=== PATIENT | male | born 1990 | race Asian ===

== ENCOUNTER 2022-08-11 19:36 | Emergency (ER) | payer BC ==
[~2022-08-11] VITALS: Ht 172.7 cm; Wt 72.6 kg
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
--- NOTE | 2022-08-11 20:53 | NUR ---
SEEN BY MD AT BEDSIDE.
[2022-08-11] MEDS ORDERED: KETOROLAC TROMETHAMINE INJ 30 MG/ML VIAL ONE (20:59)
[2022-08-11] MEDS ORDERED: KETOROLAC TROMETHAMINE INJ 60 MG/2 ML VIAL IM ONE (21:00)
--- NOTE | 2022-08-11 21:03 | NUR ---
XRAY DONE AT BEDSIDE
[2022-08-11] MEDS ORDERED: LIDOCAINE HCL/PF 2 % 5ML SDV 5 ML VIAL TP ONE (21:30)
[2022-08-11] MEDS ORDERED: LIDOCAINE HCL/PF 2 % 5ML SDV 5 ML VIAL ONE (21:47)
--- NOTE | 2022-08-11 22:30 | NUR ---
SUTURING OF WOUND DONE BY DR FRAZIER UNDER LOCAL ANESTHESIA. DRESSING APPLIED.
--- NOTE | 2022-08-11 23:05 | NUR ---
Patient discharged to home in stable condition. Written and verbal after care instructions given. Patient verbalizes understanding of instruction.
[2022-08-11 23:06] VITALS: BP 119/68
== END 2022-08-11 23:06 | disposition home or self-care (01) ==
LOC: ER 19:42
DX: S92.421A Displaced fracture of distal phalanx of right great toe, initial encounter for closed fracture (principal); S81.811A Laceration without foreign body, right lower leg, initial encounter; S80.01XA Contusion of right knee, initial encounter; S50.811A Abrasion of right forearm, initial encounter; V29.99XA Rider (driver) (passenger) of other motorcycle injured in unspecified traffic accident, initial encounter; Y93.89 Activity, other specified; Y92.89 Other specified places as the place of occurrence of the external cause; Y99.8 Other external cause status
CPT/HCPCS: 99284; 12002; 73564; 73660; 96372; J1885; J3490; A6403